=== PATIENT | female | born 1985 | race Caucasian/White ===

== ENCOUNTER 2018-07-29 00:32 | Emergency (ER) | payer MEDICAID ==
[~2018-07-29] VITALS: Ht 172.7 cm; Wt 110.0 kg
[2018-07-29 00:34] VITALS: BP 157/96
[2018-07-29] MEDS ORDERED: IBUPROFEN 200 MG TABLET ONE (00:51)
[2018-07-29] MEDS ORDERED: IBUPROFEN 200 MG TABLET PO ONE (01:00)
[2018-07-29] MEDS ORDERED: DIPH,PERTUSS(ACELL),TET VAC/PF 0.5 ML IM-VACC ONE ×2 (02:30→02:34)
== END 2018-07-29 02:43 | disposition other institution (70) ==
LOC: ED 02:37
DX: S02.2XXA Fracture of nasal bones, initial encounter for closed fracture (principal); Y04.0XXA Assault by unarmed brawl or fight, initial encounter; Y93.89 Activity, other specified; Y99.8 Other external cause status; Y92.009 Unspecified place in unspecified non-institutional (private) residence as the place of occurrence of the external cause
CPT/HCPCS: 12051; 70160; 90471; 90715; 99284

== ENCOUNTER 2018-09-08 19:25 | Emergency (ER) | payer MEDICAID ==
[~2018-09-08] VITALS: Ht 172.7 cm; Wt 102.2 kg
[2018-09-08 19:35] VITALS: BP 135/72
[2018-09-08] MEDS ORDERED: HYDROcodone/APAP 5/325 TABLET ONE (19:56)
[2018-09-08] MEDS ORDERED: HYDROcodone/APAP 5/325 TABLET PO ONE (20:00)
[2018-09-08 20:25] LABS: BASOPHILS # (AUTO) 0.03 x10^3/uL (0-0.1); BASOPHILS % (AUTO) 1 % (0-1); EOSINOPHILS # (AUTO) 0.42 x10^3/uL (0-0.4); EOSINOPHILS % (AUTO) 7 % (1-7); LYMPHOCYTES % (AUTO) 39 % (22-44); MD NO; MEAN CORPUSCULAR HGB CONC 34.3 g/dL (32.4-35.8); MEAN CORPUSCULAR VOLUME 96.4 fL (80-100); MEAN PLATELET VOLUME 8.8 fL (7.4-10.4); MONOCYTES # (AUTO) 0.32 x10^3/uL (0.2-0.8); MONOCYTES % (AUTO) 5 % (2-9); NEUTROPHILS # (AUTO) 2.84 x10^3/uL (1.8-6.8); NEUTROPHILS % (AUTO) 48 % (42-75); PLATELET COUNT 230 x10^3/uL (130-400); RED BLOOD COUNT 3.74 x10^6/uL (3.82-5.3); RED CELL DISTRIBUTION WIDTH 13.1 % (9.6-15.2)
[2018-09-08 20:33] LABS: HCT (SEDRATE) 36.1 % (34.6-47.8)
== END 2018-09-08 21:10 | disposition home or self-care (01) ==
LOC: ED 21:04
DX: G44.211 Episodic tension-type headache, intractable (principal)
CPT/HCPCS: 36415; 70450; 85025; 85651; 99285